=== PATIENT | male | born 1945 | race Caucasian/White ===

== ENCOUNTER → 2017-12-22 | Outpatient (CLI) | payer MEDICARE, OTHER ==
[2017-12-22 15:20] LABS: Blood Urea Nitrogen 16 mg/dL (9-20)
--- NOTE | 2017-12-22 15:57 | CT ---
EXAMINATION TYPE: CT chest w con DATE OF EXAM: 12/22/2017 COMPARISON: Chest x-ray 12/16/2017 HISTORY: Lung nodules CT DLP: 407.6 mGycm Automated exposure control for dose reduction was used. CONTRAST: CT scan of the chest is performed with IV Contrast, patient injected with 100 mL of Isovue 300. FINDINGS: LUNGS: There is a calcified nodule right lower lobe compatible with a granuloma. Subsegmental consoli dation at the left lung base noted is a somewhat nodular pattern. Again is more likely related atelec tasis mass. Short-term follow-up recommended is ill-defined density in the left lung apex is somewhat irregular in appearance adrenal a 2 mm in diameter. Extends a length of 2 cm. This could be related to scar or atelectasis. Malignancy not entirely excluded. No consolidative pneumonia, pleural effusion or pneumothorax. MEDIASTINUM: Aorta of normal caliber. No pathologic adenopathy identified. Calcified lymph nodes in t he hilum noted in the heart is mildly enlarged. Minimal coronary artery calcification noted. OTHER: Hypertrophic and degenerative change of the spine. There are a few scattered areas of focal s clerosis involving the vertebral column which are nonspecific. IMPRESSION: 1. Calcified granuloma right lower lobe 2. Somewhat nodular area of consolidation left lung base may be related atelectasis rather than neopl asm given the morphology. Neoplasm not excluded. Recommend short-term follow-up [address] scan to co nfirm stability otherwise consider PET scan. 3. Linear somewhat irregular density left upper lobe measuring 2 mm in diameter extending a length of 2 cm is most likely related to an area of scar or linear atelectasis. This also should be followed o n short-term basis [address]
== END | disposition home or self-care (01) ==
LOC: RADCTMAIN 14:51
PROVIDERS: ATTEND Internal Medicine
DX: J84.10 Pulmonary fibrosis, unspecified (principal); R91.8 Other nonspecific abnormal finding of lung field
CPT/HCPCS: 82565; 84520; 71260; 36415; Q9967

== ENCOUNTER → 2018-11-30 | Outpatient (CLI) | payer OTHER ==
--- NOTE | 2018-11-30 15:59 | CT ---
EXAMINATION TYPE: CT chest w con DATE OF EXAM: 11/30/2018 COMPARISON: Prior chest CT December 22, 2017 HISTORY: Follow up lung nodule. CT DLP: 439.6 mGycm. Automated Exposure Control for Dose Reduction was Utilized. TECHNIQUE: CT scan of the thorax is performed following with IV Contrast, patient injected with 100 mL of Isovue 300. FINDINGS: LUNGS: There is persistent mild to minimal biapical pleural/parenchymal scarring most prominent poste riorly in the left lung apex where there are scarlike opacity axial image 15 unchanged from prior francisca dy presumed postinflammatory. There is additional posterior left basilar linear scarring which become s more nodule in appearance just above diaphragm no significant change from prior. No pleural effusio n or pneumothorax is evident bilaterally. No suspicious new noncalcified nodules or masses. Stable ca lcified 5 mm nodule or granuloma right middle lobe axial image 40. MEDIASTINUM: There are no new greater than 1 cm noncalcified hilar or mediastinal lymph nodes. Subcen timeter calcified anterior right hilar lymph nodes are redemonstrated. No cardiomegaly is seen. Stab le trace pericardial effusion. OTHER: Small degree of subareolar gynecomastia is redemonstrated. Splenomegaly is redemonstrated frieda uring 14.9 cm long axis axial image 59. Moderate to severe multilevel spurring in the thoracic spine is redemonstrated. IMPRESSION: Overall stable findings, evidence of old granulomatous disease. Scanner linear and slight ly nodular scarring presumed postinflammatory given interval stability. No new greater than 5 mm pulm onary nodules or masses.
== END | disposition home or self-care (01) ==
LOC: RADCTMAIN 13:54
PROVIDERS: ATTEND Internal Medicine
DX: R91.8 Other nonspecific abnormal finding of lung field (principal)
CPT/HCPCS: 82565; 84520; 71260; 36415; Q9967